=== PATIENT | female | born 1960 | race Asian ===

== ENCOUNTER → 2017-01-07 | Outpatient (CLI) | payer BC | LOC: FIMAGING 15:41 | DX: Z12.31 Encounter for screening mammogram for malignant neoplasm of breast (principal) | CPT/HCPCS: G0202 ==

== ENCOUNTER → 2018-01-10 | Outpatient (CLI) | payer BC, OTHER | LOC: FIMAGING 10:52 | DX: Z12.31 Encounter for screening mammogram for malignant neoplasm of breast (principal) ==

== ENCOUNTER → 2018-01-25 | Outpatient (CLI) | payer OTHER | LOC: FIMAGING 13:10 | DX: R92.8 Other abnormal and inconclusive findings on diagnostic imaging of breast (principal) ==

== ENCOUNTER → 2018-12-15 | Outpatient (CLI) | payer OTHER | LOC: FIMAGING 12:12 | PROVIDERS: ATTEND Family Medicine | DX: Z12.31 Encounter for screening mammogram for malignant neoplasm of breast (principal) ==